=== PATIENT | female | born 1995 | race Hispanic/Latino ===

== ENCOUNTER 2021-01-24 14:07 | Outpatient (CLI) | payer BC | END 2021-01-24 14:08 | disposition home or self-care (01) | LOC: CSHULT 14:07 | PROVIDERS: ATTEND Internal Medicine Rheumatology | DX: D72.10 Eosinophilia, unspecified (principal); R06.00 Dyspnea, unspecified | CPT/HCPCS: 93005; 93010; 93306 ==